=== PATIENT | female | born 1975 | race Caucasian/White ===

== ENCOUNTER 2024-06-11 00:40 | Emergency (ER) | payer SELFPAY ==
[~2024-06-11] VITALS: Ht 162.6 cm; Wt 85.0 kg
[2024-06-11 00:43] VITALS: TEMP 98.4; O2SAT 97
[2024-06-11] MEDS ORDERED: ACETAMINOPHEN 325MG TABLET PO STA (00:47)
[2024-06-11] MEDS ORDERED: IBUP-2029 MT (03:08)
[2024-06-11 03:28] VITALS: BP 129/67; PULSE 65; RESP 15; O2SAT 99
== END 2024-06-11 03:20 | disposition home or self-care (01) ==
LOC: ER 00:47
DX: M25.511 Pain in right shoulder (principal); R07.89 Other chest pain; I10 Essential (primary) hypertension; E11.9 Type 2 diabetes mellitus without complications
CPT/HCPCS: 71045; 73030; 99284